=== PATIENT | female | born 1975 | race African-American/Black ===

== ENCOUNTER → 2019-06-19 | Outpatient (CLI) | payer OTHER, SELFPAY ==
--- NOTE | 2019-06-19 10:12 | MRI_ITS ---
STUDY: MRI RIGHT WRIST WITHOUT CONTRAST REASON FOR EXAM: Right wrist sprain, patient felt a pop at the ulnar aspect, pain since 05/07/2019. TECHNIQUE: Standardized fat and water weighted pulse sequences were obtained in all 3 orthogonal planes. COMPARISON: None. FINDINGS: Normal visualized distal radius and ulna. Normal distal radioulnar articulation (DRUJ). Normal triangular fibrocartilaginous complex (TFCC). There are small intraosseous cysts in the capitate and hamate (inversion recovery coronal image 11). Otherwise, unremarkable carpal bones. Normal radiocarpal, intercarpal and midcarpal articulations. There is a very small volume of fluid in the proximal recess of the pisotriquetral articulation (inversion recovery coronal image 10). Normal visualized interosseous scapholunate ligament. There is a very small volume of fluid in the second dorsal compartment (inversion recovery axial images 11-13). There is mild ulnar subluxation of the extensor carpi ulnaris tendon (T1 axial image 8) with negative ulnar variance. There is a very small volume of fluid in the sixth dorsal compartment (inversion recovery axial images 14, 15). There is a very small volume of fluid in the radial aspect of the flexor tendon sheath proximal to the carpal tunnel (inversion recovery axial images 9, 10). Normal carpal tunnel with a normal median nerve. Normal carpometacarpal articulation of the thumb. Normal second through fifth carpometacarpal articulations. Normal visualized metacarpal bones. There is a small ganglion cyst dorsal to the hvnexs-onlsgtyw-wjzuozwy articulation (inversion recovery axial image 14; T2 sagittal images 16, 17) measuring 0.15 x 0.6 x 0.3 cm (AP x transverse x length). MRI/Upper Ext Joint Only(Routine) IMPRESSION: Mild ulnar subluxation of the extensor carpi ulnaris tendon and very mild extensor carpi ulnaris tenosynovitis. Very mild extensor carpi radialis brevis and longus tenosynovitis. Very mild proximal flexor tenosynovitis. Small dorsal ganglion cyst. No demonstrated tendon tear. Electronically Signed: Dany Berger MD at 11:50 EDT Tel , Service support ,
== END | disposition home or self-care (01) ==
PROVIDERS: Referring Provider Family Medicine; Visit Provider Family Medicine
DX: S63.501A Unspecified sprain of right wrist, initial encounter (principal)
CPT/HCPCS: 73221